=== PATIENT | female | born 1970 | race Caucasian/White ===

== ENCOUNTER → 2018-11-10 | Day surgery (SDC) | payer OTHER ==
[~2018-11-10] VITALS: Ht 160 cm; Wt 70.8 kg
[~2018-11-10] MED LIST: ACETAMINOPHEN 650 MG SUPP PR ONE; LR 1,000 ML IV ONE
[2018-11-10 07:45] VITALS: BP 107/67
[2018-11-10 08:11] LABS: HEMATOCRIT 42.1 % (36.0-47.0); HEMOGLOBIN 13.7 g/dl (12.0-15.5); MEAN CORPUSCULAR HEMOGLOBIN 28.1 pg (27.0-33.0); MEAN CORPUSCULAR HGB CONC 32.5 g/dl (32.0-36.5); MEAN CORPUSCULAR VOLUME 86.4 fl (80.0-96.0); PLATELET COUNT, AUTOMATED 362 10^3/uL (150-450); RED BLOOD COUNT 4.87 10^6/uL (4.00-5.40); WHITE BLOOD COUNT 10.9 10^3/uL (4.0-10.0)
[2018-11-10 08:32] LABS: BLOOD UREA NITROGEN 13 MG/DL (7-18); CALCIUM LEVEL 9.1 MG/DL (8.5-10.1); CARBON DIOXIDE LEVEL 26 MEQ/L (21-32); CHLORIDE LEVEL 106 MEQ/L (98-107); CREATININE FOR GFR 0.78 MG/DL (0.55-1.30); GLOMERULAR FILTRATION RATE > 60.0 (>58); GLUCOSE, FASTING 90 MG/DL (70-100); HCG, SERUM QUANTITATIVE < 1.0 MIU/ML; SODIUM LEVEL 139 MEQ/L (136-145)
== END | disposition home or self-care (01) ==
LOC: M SDC 07:41
PROVIDERS: ATTEND Obstetrics & Gynecology
DX: N93.9 Abnormal uterine and vaginal bleeding, unspecified (principal); Z53.9 Procedure and treatment not carried out, unspecified reason

== ENCOUNTER 2018-11-17 10:23 | Day surgery (SDC) | payer OTHER ==
[~2018-11-17] VITALS: Ht 160 cm; Wt 70.9 kg
[~2018-11-17 10:23] MED LIST changes: -ACETAMINOPHEN 650 MG SUPP PR ONE; +LACTATED RINGER'S 1000 ML IV ONE; -LR 1,000 ML IV ONE; +LR 1,000 ML IV SCH
[2018-11-17] MEDS ORDERED: MIDAZOLAM INJ 2 MG/2 ML VIAL (J2250) As Ordered ONE (10:40)
[2018-11-17] MEDS ORDERED: LIDOCAINE 2% INJ 100 MG/5 ML SDV (FOR ANES.) As Ordered ONE (10:40)
[2018-11-17] MEDS ORDERED: PROPOFOL 200 MG/20 ML VIAL As Ordered ONE (10:40)
[2018-11-17] MEDS ORDERED: fentaNYL 100 MCG/2 ML INJECTION (J3010) As Ordered ONE (10:40)
[2018-11-17] MEDS ORDERED: ONDANSETRON 4MG/2ML VIAL (J2405) As Ordered ONE (10:41)
[2018-11-17] MEDS ORDERED: dexameTHASONE 4 MG/ML 1ML VIAL (J1100) As Ordered ONE (10:41)
[2018-11-17] MEDS ORDERED: ACETAMINOPHEN 650 MG SUPP As Ordered ONE (12:20)
[2018-11-17] MEDS ORDERED: KETOROLAC 60 MG/2 ML VIAL (J1885) As Ordered ONE (12:32)
[2018-11-17] MEDS ORDERED: LR 1,000 ML IV SCH (13:15)
[2018-11-17] MEDS ORDERED: MEPERIDINE INJ 25 MG/ML VIAL (J2175) IV PRN (13:15)
[2018-11-17] MEDS ORDERED: fentaNYL 100 MCG/2 ML INJECTION (J3010) IV PRN (13:15)
[2018-11-17] MEDS ORDERED: METOCLOPRAMIDE INJ 10MG/2ML VIAL (J2765) IV PRN (13:15)
[2018-11-17] MEDS ORDERED: ONDANSETRON 4MG/2ML VIAL (J2405) IV PRN (13:15)
[2018-11-17] MEDS ORDERED: PERCOCET 5MG/325MG TAB PO PRN (13:15)
[2018-11-17 13:25] VITALS: BP 122/88
[2018-11-17] MEDS ORDERED: IBUPROFEN 800 MG TAB PO SCH (14:00)
--- NOTE | 2018-11-26 09:31 | RO ---
DATE OF PROCEDURE: 11/17/2018 PREOPERATIVE DIAGNOSIS: Menorrhagia, abnormal uterine bleeding. POSTOPERATIVE DIAGNOSIS: Menorrhagia, abnormal uterine bleeding, large volume cervix. OPERATION PROPOSED: Hysteroscopy, dilation and curettage, NovaSure endometrial ablation. OPERATION PERFORMED: Hysteroscopy, dilation and curettage, endometrial NovaSure ablation. SURGEON: Surjit Mcleod MD GRADE TEACHER: ANESTHESIA: General. ESTIMATED BLOOD LOSS: 20 mL. DESCRIPTION OF PROCEDURE: After adequate time-out, prepped and draped, in lithotomy position, bladder drained for 50 mL of clear urine. Sequential on board. No antibiotics required. Weighted speculum in vagina. Single-tooth tenaculum on a large volume cervix. We sounded the uterus to depth of 6.5 and we did a uterine curettage of which the tissue was sent off to the pathology under separate cover. The endometrial NovaSure ablation was placed in utero at 6.5 length, 4.5 width, 161 power and endometrial NovaSure ablation was performed for 59 seconds. The instrument was removed. Then, a hysteroscopic evaluation was performed. The anterior and assembly line leader acosta were charred. The lateral acosta were charred. The ostium were also charred giving us a good burn. The patient does have cervical prolapse, grade 2 with a large volume cervix. The uterus was placed in anatomical position. We used 125 mL in, 125 mL out, and the patient was sent recovery in good condition.
== END 2018-11-17 13:55 | disposition home or self-care (01) ==
LOC: M SDC 10:23
PROVIDERS: ATTEND Obstetrics & Gynecology
DX: N92.0 Excessive and frequent menstruation with regular cycle (principal); N88.2 Stricture and stenosis of cervix uteri; R01.1 Cardiac murmur, unspecified; D25.9 Leiomyoma of uterus, unspecified; Z72.0 Tobacco use; Z98.51 Tubal ligation status
CPT/HCPCS: 58563; 88305; J1100; J1885; J2250; J2405; J3010

== ENCOUNTER 2019-09-23 07:47 | Emergency (ER) | payer OTHER ==
[~2019-09-23] VITALS: Ht 160 cm; Wt 73.5 kg
[2019-09-23 08:20] LABS: BASO # 0.1 10^3/uL (0.0-0.2); BASO % 0.4 % (0.0-1.0); EOS # 0.2 10^3/uL (0.0-0.5); EOS % 1.3 % (0.0-3.0); HEMATOCRIT 44.9 % (36.0-47.0); HEMOGLOBIN 14.9 g/dl (12.0-15.5); LYMPH # 2.7 10^3/uL (1.5-5.0); LYMPH % 22.1 % (24.0-44.0); MEAN CORPUSCULAR HEMOGLOBIN 30.2 pg (27.0-33.0); MEAN CORPUSCULAR HGB CONC 33.2 g/dl (32.0-36.5); MEAN CORPUSCULAR VOLUME 90.9 fl (80.0-96.0); MONO # 0.8 10^3/uL (0.0-0.8); MONO % 6.4 % (0.0-5.0); NEUTROPHILS # 8.5 10^3/uL (1.5-8.5); NEUTROPHILS % 69.5 % (36.0-66.0); PLATELET COUNT, AUTOMATED 298 10^3/uL (150-450); RED BLOOD COUNT 4.94 10^6/uL (4.00-5.40); WHITE BLOOD COUNT 12.3 10^3/uL (4.0-10.0)
--- NOTE | 2019-09-23 08:35 | REP ---
Portable chest x-ray: Single view. History: Chest pain. Findings: EKG monitoring electrodes overlie the chest. Lungs are well inflated and clear. The pleural angles are sharp. Heart size is normal. Pulmonary vasculature is not increased. There is a minimal dextroconvex thoracic curvature. No significant bony abnormality. Impression: No active disease. Electronically Signed by Jacinto Cisneros MD 09/23/2019 08:26 A
[2019-09-23 08:47] LABS: BLOOD UREA NITROGEN 15 MG/DL (7-18); CALCIUM LEVEL 9.1 MG/DL (8.5-10.1); CARBON DIOXIDE LEVEL 21 MEQ/L (21-32); CHLORIDE LEVEL 110 MEQ/L (98-107); CK-MB VALUE MASS < 1.0 NG/ML (<3.6); CPK CREATINE PHOSPHOKINASE 70 U/L (26-192); CREATININE FOR GFR 0.85 MG/DL (0.55-1.30); GLOMERULAR FILTRATION RATE > 60.0 (>51); GLUCOSE, FASTING 88 MG/DL (70-100); MB/CK RELATIVE INDEX 1.43 (< OR =4); SODIUM LEVEL 140 MEQ/L (136-145); TROPONIN I < 0.02 NG/ML (< 0.10)
[2019-09-23 09:06] LABS: ALBUMIN 3.8 GM/DL (3.2-5.2); ALT/SGPT 65 U/L (12-78); BILIRUBIN,DIRECT 0.2 MG/DL (0.0-0.2); BILIRUBIN,TOTAL 0.7 MG/DL (0.2-1.0); LIPASE 95 U/L (73-393); TOTAL PROTEIN 7.2 GM/DL (6.4-8.2)
[2019-09-23] MEDS ORDERED: ISOVUE-370 76% 100ML VIAL (Q9967) As Ordered ONE (09:17)
--- NOTE | 2019-09-23 09:50 | REP ---
Clinical: Chest pain . Technique: Axial contrast enhanced images from the thoracic inlet to the upper abdomen using 75 ml Isovue 370 intravenous contrast material with multiplanar re-formations. Findings: Satisfactory enhancement of the pulmonary vasculature is achieved and no filling defects are identified to suggest pulmonary embolus. Further evaluation of the mediastinum demonstrates normal thoracic aorta, heart and pericardium. The bilateral lung conway are well aerated and clear without consolidation pleural effusion or pneumothorax. Tracheobronchial tree is patent. No nodule or mass lesion is identified. No adenopathy noted. Surrounding musculoskeletal structures intact Impression: No evidence for pulmonary embolus. No acute mediastinal or pleural parenchymal process. Electronically Signed by Matthew Lockhart MD 09/23/2019 09:42 A
[2019-09-23 11:12] LABS: CK-MB VALUE MASS < 1.0 NG/ML (<3.6); CPK CREATINE PHOSPHOKINASE 62 U/L (26-192); MB/CK RELATIVE INDEX 1.61 (< OR =4)
[2019-09-23 11:30] VITALS: BP 131/75
--- NOTE | 2019-09-24 14:22 | ECGEPIP ---
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
--- NOTE | 2019-09-24 14:36 | ECGEPIP ---
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
== END 2019-09-23 12:01 | disposition home or self-care (01) ==
LOC: M ED 07:47
DX: R07.89 Other chest pain (principal); Z82.49 Family history of ischemic heart disease and other diseases of the circulatory system
CPT/HCPCS: 36415; 71045; 71275; 80048; 80076; 82550; 82553; 83690; 84484; 85025; 93005; 93041; 94760; 99285; Q9967

== ENCOUNTER → 2021-07-02 | Outpatient (CLI) | payer OTHER ==
--- NOTE | 2021-07-02 12:50 | REPMRS ---
Patient History The patient states she has not had a clinical breast exam in over a year. Family history of breast cancer in maternal grandmother. Tomosynthesis is performed. Volpara breast density is c. Tyrer-Cuzick lifetime risk of breast cancer 14.1%. No breast complaints today Patient signed the MRS sheet 1st covid vaccine 12/01/20-left arm-Pfizer 2nd covid vaccine 12/22/20-left arm 1 prior done @ [facility] Patient Identification Verified Digital Woman Screen Mammo: July 02, 2021 - Exam #: [id number] Bilateral CC and MLO view(s) were taken. Technologist: Alexa Logan, Technologist FINDINGS: The breast tissue is heterogeneously dense. This may lower the sensitivity of mammography. There has been no change in the appearance of the mammogram from the prior studies. There is a moderate amount of residual fibroglandular tissue which is fairly symmetric. There is no interval development of dominant mass, areas of architectural distortion, or clustered microcalcification typical of malignancy. Assessment: BI-RADS/ACR category 1 mammogram. Negative Mammogram. Recommendation Routine screening mammogram in 1 year (for women over age 40). This mammogram was interpreted with the aid of an FDA-approved computer-aided dectection system. Electronically Signed By: Jese Emery MD 07/02/21 [id number]
== END ==
LOC: M WHC 11:20
PROVIDERS: ATTEND Family Medicine
DX: Z12.31 Encounter for screening mammogram for malignant neoplasm of breast (principal); Z80.3 Family history of malignant neoplasm of breast

== ENCOUNTER → 2024-02-23 | Outpatient (CLI) | payer OTHER | LOC: M WHC 11:04 | PROVIDERS: ATTEND Student in an Organized Health Care Education/Training Program | DX: Z12.31 Encounter for screening mammogram for malignant neoplasm of breast (principal) ==